=== PATIENT | female | born 1950 | race Caucasian/White ===

== ENCOUNTER → 2021-05-01 | Outpatient (CLI) | payer OTHER, SELFPAY ==
--- NOTE | 2021-05-01 | EMB_PTH ---
PATIENT: LUIZA CROSS LOC: [facility] U#:[id number] AGE/SX: 70/F ROOM: RE05/01/[address]: Dr. Naya Muniz MD : 1950 BED: DIS: 05/01/2021 SPEC #: [id number] RECD: 05/01/21 11:08 STATUS: OSWALDO FRANCHESCA #: [id number] NÉSTOR: 05/01/21 00:[address]: Naya Muniz DEPT: SURGICAL PATHOLOGY RECD BY: Adriano Herbert ENTERED: 05/01/21 11:22 SP TYPE: ENDOM BX/C ANDREE DR: No Primary Care Phys Tissues: A - Endometrium, NOS B - POLYP Procedures: Surgery Specimen Level IV HEADER OPERATION: Endometrial biopsy / polypectomy PRE-OP DIAGNOSIS: Abnormal uterine bleeding TISSUE SUBMITTED: A ? Endocervical, B - Polyp MICROSCOPIC DIAGNOSIS A. Endometrial biopsy: Scant strips of benign endometrial epithelium, consistent with atrophic endometrium and blood clots. Scant strips of benign endocervical epithelium. B. Polyp, polypectomy: Benign endometrial polyp with simple cystic hyperplasia without atypia. MENDEZ:iva 05/02/2021 MICROSCOPIC DESCRIPTION Slides are reviewed. GROSS DESCRIPTION A - Received in fixative is one container labeled with the patient's name and designated endometrial biopsy. The specimen consists of red-farris soft tissue measuring in aggregate 1.3 x 1 x <0.1 cm. The specimen is totally submitted in one cassette. B - Received in fixative is one container labeled with the patient's name and designated polyp. The specimen consists of a polypoid fragment of pink-farris soft tissue measuring 1.5 x 0.6 x 0.5 cm. The specimen is bisected and totally submitted in one cassette. / AM:iva 05/01/2021 TC:5 CPT: 31328 x2
[2021-05-01 08:42] VITALS: BMI 35.3
== END | disposition home or self-care (01) ==
PROVIDERS: Referring Provider Obstetrics & Gynecology; Visit Provider Obstetrics & Gynecology
DX: N93.9 Abnormal uterine and vaginal bleeding, unspecified (principal); N85.01 Benign endometrial hyperplasia
CPT/HCPCS: 88305

== ENCOUNTER → 2021-05-05 07:13 | Outpatient (CLI) | payer SELFPAY, OTHER ==
[2021-05-01 08:42] VITALS: BMI 35.3
--- NOTE | 2021-05-05 07:22 | US_ITS ---
STUDY: ULTRASOUND OF THE FEMALE PELVIS - COMPLETE REASON FOR EXAM: Female, 70 years old. Bleeding. History of bilateral oophorectomy. TECHNIQUE: Transabdominal and Transvaginal TECHNICAL QUALITY: Adequate. COMPARISON: None. FINDINGS: The uterus is anteverted and is in a midline position. The uterus measures 6.9 x 4.7 x 3.9 cm. Normal uterine cervix. The endometrium measures 24 mm in thickness, and is heterogeneous (striated). There is no demonstrated endometrial mass. There is no demonstrated myometrial mass. The patient is status post bilateral nephrectomy. There is no fluid in the cul-de-sac. US/Transvaginal Non- IMPRESSION: Heterogeneous and thickened endometrium, measuring up to 2.4 cm. Tissue sampling is recommended to exclude neoplasm. Electronically Signed: Danilo Sanchez MD at 9:11 EDT Tel , Service support ,
--- NOTE | 2021-05-05 07:22 | US_ITS ---
STUDY: ULTRASOUND OF THE FEMALE PELVIS - COMPLETE REASON FOR EXAM: Female, 70 years old. Bleeding. History of bilateral oophorectomy. TECHNIQUE: Transabdominal and Transvaginal TECHNICAL QUALITY: Adequate. COMPARISON: None. FINDINGS: The uterus is anteverted and is in a midline position. The uterus measures 6.9 x 4.7 x 3.9 cm. Normal uterine cervix. The endometrium measures 24 mm in thickness, and is heterogeneous (striated). There is no demonstrated endometrial mass. There is no demonstrated myometrial mass. The patient is status post bilateral nephrectomy. There is no fluid in the cul-de-sac. US/Pelvic (Non ) IMPRESSION: Heterogeneous and thickened endometrium, measuring up to 2.4 cm. Tissue sampling is recommended to exclude neoplasm. Electronically Signed: Danilo Sanchez MD at 9:11 EDT Tel , Service support ,
== END ==
PROVIDERS: Referring Provider Obstetrics & Gynecology; Visit Provider Obstetrics & Gynecology
DX: N95.0 Postmenopausal bleeding (principal)
CPT/HCPCS: 76830; 76856

== ENCOUNTER 2021-06-06 06:45 | Day surgery (SDC) | payer SELFPAY ==
[2021-05-05 08:20] VITALS: BMI 35.3
--- NOTE | 2021-06-02 12:27 | EKG12_ITS ---
Test Reason : PRE OP Blood Pressure : / mmHG Vent. Rate : 068 BPM Atrial Rate : 068 BPM P-R Int : 190 ms QRS Dur : 076 ms QT Int : 422 ms P-R-T Axes : 011 -23 014 degrees QTc Int : 448 ms Normal sinus rhythm Normal ECG Confirmed by RAGHAV MAYFIELD, CARRIE ([id number]), editor news RAMO OWEN ([id number]) on 06/06/2021 8:27:40 AM Referred By: Naya Muniz Confirmed By:JOSE ALFREDO AVILEZ MD
[2021-06-06] VITALS (7 sets, daily range): BP systolic 105–138; BP diastolic 55–81; PULSE 47–69; RESP 16; TEMP 36–36.6; O2SAT 92–97; BMI 32.1
--- NOTE | 2021-06-06 | EMB_PTH ---
PATIENT: LUIZA CROSS LOC: [facility] [place] U#:[id number] AGE/SX: 70/F ROOM: RE06/06/[address]: Dr. Naya Muniz MD : 1950 BED: DIS: 06/06/2021 SPEC #: [id number] RECD: 06/06/21 11:29 STATUS: OSWALDO FRANCHESCA #: [id number] NÉSTOR: 06/06/21 00:[address]: Naya Muniz DEPT: SURGICAL PATHOLOGY RECD BY: Rayo Acevedo ENTERED: 06/06/21 11:29 SP TYPE: ENDOM BX/C ANDREE DR: No Primary Care Phys Tissues: Endometrium, NOS Procedures: Surgery Specimen Level IV HEADER OPERATION: Hysteroscopy, D&C symphion, myomectomy PRE-OP DIAGNOSIS: Post menopausal bleeding TISSUE SUBMITTED: Endometrial curettings and fibroid MICROSCOPIC DIAGNOSIS Endometrium curettings and fibroid: Endometrium with simple hyperplasia without atypia. Fragments of hyalinized myometrium consistent with portions of leiomyoma. AM;am 06/07/21 MICROSCOPIC DESCRIPTION Slides are reviewed. GROSS DESCRIPTION Received in formalin is one container labeled with the patient name and designated endometrial curettings and fibroid. The specimen consists of multiple elongated and irregular and rubbery fragments of pink-farris tissue measuring in aggregate 14 x 8 x 0.3cm. The specimen is totally submitted in 10 cassettes. / AM;am 06/06/21 TC:5 CPT:67590
--- NOTE | 2021-06-06 07:15 | HP.PCM_ITS ---
History and Physical Date of Admission: 06/06/21 Intake Vital Signs 05/05/21 08:18 05/05/21 08:20 Height 5 ft 3 in Weight: 183 lb BMI 32.4 35.3 BP 112/74 Intake Visit Reasons: US at 0730 Chief Complaint: pre op [employer] Reading [employer] Required: No Is patient in pain?: No Allergies No Known Allergies Allergy (Verified 02/24/16 01:37) Medications amlodipine 10 mg PO DAILY #30 tablet 02/27/16 [Rx Confirmed 05/05/21] sertraline [Zoloft] 25 mg PO DAILY #30 tablet 02/27/16 [Rx Confirmed 05/05/21] Is last menstrual period known: No Post menopausal: No Patient : No : No PFSH Medical History Anxiety and depression Hypertension Surgical History H/O bilateral oophorectomy H/O section Family History Unknown Cancer Brother Diabetes Sister Diabetes Social History Smoking Status: Never smoker alcohol intake: never substance use type: does not use caffeine: No seatbelt use: always do you feel safe at home: No additional social history: Chance- Patient does not work HPI US at 0730 Details: LUIZA CROSS is a 70 year old who presents for fu of postmenopausal bleeding. Her endometrial biopsy was within normal limits and polyp showed simple hyperplasia without atypia. Lining of the uterus is significantly thickened on ultrasound. She has had some bleeding since Saturday and cramping Pregancy History 3 Elective abortions Hx Para 3 Spontaneous abortions Hx # Term Pregnancies Ectopic pregnancies Hx # Pregnancies Multiple births 1 # of living children 3 ROS Const Constitutional: Denies fatigue, fever(s), headache(s), increased appetite, poor appetite, weight gain or weight loss GI GI: Reports as per HPI; Denies abdominal pain, constipation, nausea or vomiting : Reports as per HPI; Denies difficulty voiding, dysuria, hematuria, nipple discharge, pelvic pain, urinary frequency, urinary incontinence, urinary hesitancy, urinary urgency, vaginal discharge, vaginal dryness, vaginal odor, vaginal pruritus or other Skin Skin/Breast: Denies nipple discharge Exam Const General: cooperative, healthy appearing, comfortable, no acute distress and well developed Orientation: alert HENMT Head: normal to inspection and normocephalic Ears: hearing grossly normal bilaterally and external ears normal Nose: external nose normal and nares normal Face and sinus: normal facial exam Neck Neck: normal visual inspection, no lymphadenopathy and trachea midline Thyroid: thyroid normal Resp Effort & Inspection: normal respiratory effort Musc Other: gross motor intact no deficits, full bilateral strength Skin General: no rashes or lesions noted Neuro Motor: muscle tone normal throughout Coding Level of Care Code Off vis,est,level 3 Diagnoses Postmenopausal bleeding N95.0 Endometrial polyp N84.0 Assessment and Plan Assessment and Plan (1) Postmenopausal bleeding: Status: Acute Comment: emb polyp and thickened lining Plan - Dr. Naya Muniz MD: After discussing the patient's diagnosis and treatment plan options, patient wishes to proceed with surgical management. I have discussed with the patient the risks, benefits, and alternatives of the procedure which include but are not limited to risks of anesthesia, bleeding, infection, possible damage to bowel, bladder, or surrounding vasculature which could lead to additional surgery to evaluate any complications. Patient agrees to procedure and wishes to proceed. ACOG/uptodate references given for additional information regarding procedure. (2) Endometrial polyp: Status: Acute Comment: d and c hysteroscopy polypectomy UPDATE- I have seen the patient and performed any clinically relevant updates to the history and physical exam. Naya Muniz MD
[2021-06-06] MEDS: Lactated Ringers 1,000 ML 100 ML IV (07:20)
--- NOTE | 2021-06-06 08:00 | PCM.OPRPT ---
Problems Associated Problem List Diagnoses (1) Postmenopausal bleeding: (2) Endometrial polyp: Report of Operation Date of Procedure: 06/06/21 Pre-Operative Diagnosis: see problem list Post-Operative Diagnosis: same Surgery/Procedure Performed:: D&C hysteroscopy myomectomy using symphion pulling unit floorhand: None Type of Anesthesia: Local MAC Special Medications: none Specimen's removed: EMC,fibroid Drains: none Estimated Blood Loss (mL): 50 Fluids Replaced: crystalloid Description of Procedure: Patient was prepped and draped in a normal sterile fashion under MAC anesthesia. A weighted speculum was placed in the vagina and the anterior lip of the cervix was grasped with a single-tooth tenaculum. A paracervical block was placed with 1% lidocaine. Cervix was progressively dilated to allow passage of a 5 mm hysteroscope. The lining was fully visualized and noted to have a large submucosal fibroid and thickened lining. Uterine sounded to 9 cm. Using the symphion device, the fibroid was progressively removed without complications. Direct visual curettage was performed using the device , and all specimens were sent to pathology. All instruments were removed from the vagina and excellent hemostasis was noted. Patient was awoken and taken to recovery in stable condition. Grafts/Implants Used: none Complications none Admit VTE Documentation VTE Present on Admission: No VTE Mechan Device Prophylaxis: SCD's Multi Select Codes Urinary/Genital Urinary/Genital CPT Codes: 79833 Hysteroscopic myomectomy
--- NOTE | 2021-06-06 08:00 | EX.PCM.DISCH ---
Discharge Instructions Procedure D&C Diet Discharge Diet: No restrictions Activity Discharge Activity: Return to Normal Activity, May Shower and May Take a Tub Bath (after 1 week) May resume sexual activity in: 1-2 weeks Weight Bearing Status: Weight bearing as tolerated Lifting Restrictions: none Dressing / Incision Call your doctor if you observe: Fever of 101 or Higher, Using more than 1 pad per hour, Shortness of breath and Uncontrolled pain Follow Up Care Please Follow Up With: Naya Muniz MD When: Call [phone] to schedule appointment. Test Results: Test results from this visit will be discussed in further detail at your follow-up appointment, if applicable. Discharge Plan Admission Attending Provider: Naya Muniz Primary Care Provider: Care Physician,Augustina Primary Discharge Orders/Prescriptions Prescriptions: No Action amlodipine 10 MG tablet 10 mg PO DAILY Qty: 30 RF: 5 sertraline [Zoloft] 25 MG tablet 25 mg PO DAILY Qty: 30 RF: 5 Other Ambulatory Orders: 12 Lead EKG (Routine) Timeframe: [id number] Location: None Selected Ordered By: Dr. Naya Muniz
[2021-06-06] MEDS: Cefazolin 2 GM in 0.9% Normal Saline 100 ML IV (08:33)
[2021-06-06] MEDS: Lidocaine 1% (20 ml mdv) 20 ML Vial (08:51)
== END 2021-06-06 11:25 | disposition home or self-care (01) ==
LOC: SDC 06:49 → AC 06:55
PROVIDERS: Referring Provider Obstetrics & Gynecology; Visit Provider Obstetrics & Gynecology
PROC: 0UB98ZZ Excision of Uterus, Via Natural or Artificial Opening Endoscopic (ICD-10-PCS; CPT 58558; principal; 2021-06-06 08:25)
DX: N95.0 Postmenopausal bleeding (principal); N85.01 Benign endometrial hyperplasia; D25.0 Submucous leiomyoma of uterus; I10 Essential (primary) hypertension; F32.9 Major depressive disorder, single episode, unspecified; F41.9 Anxiety disorder, unspecified; Z79.899 Other long term (current) drug therapy
CPT/HCPCS: 58561; 36415; 86850; 86900; 86901; 87635; 88305; 93005; C9803; J7120; U0005; J2405; U0003

== ENCOUNTER 2021-08-08 07:24 | Day surgery (SDC) | payer SELFPAY ==
[2021-08-02 12:26] LABS: Absolute Lymphocyte Count 2.25 X10^3/uL (0.83-4.51); Absolute Neutrophil Count 6.9 X10^3/uL (2.0-7.7); Basophil# 0.03 X10^3/uL; Basophil% 0.3 % (0-1); Eosinophil# 0.09 X10^3/uL; Eosinophils% 0.9 % (0-5); Hematocrit 43.1 % (37-47); Hemoglobin 14.7 g/dL (12.0-15.0); Lymphocyte # 2.25 X10^3/ul (0.83-4.51); Lymphocyte % 22.4 % (19-41); Mean Corp Hgb Conc 34.1 g/dL (32-36); Mean Corpuscular Hgb 31.1 pg (27.0-32.0); Mean Corpuscular Volume 91.1 fL (81-99); Mean Platelet Vol. 12.1 fl (6.2-12.0); Monocyte# 0.73 X10^3/uL; Monocyte% 7.3 % (0-10); NRBC Flagged by Analyzer 0 % (0-5); Neutrophil # 6.92 X10^3/uL (2.7-7.7); Neutrophil % 68.8 % (47-70); Platelet Count 237 K/mm3 (150-450); RBC Distribution Width SD 43.6 fl (35.1-43.9); Red Blood Count 4.73 M/mm3 (4.2-5.4); White Blood Count 10.1 K/mm3 (4.4-11.0)
[2021-08-02 12:33] LABS: ALB/GLOB Ratio 0.9 RATIO (0.9-2.4); AST(SGOT) 16 U/L (15-37); Alanine Aminotransfer ALT/SGPT 36 U/L (13-56); Albumin, Serum 3.7 g/dL (3.2-5.0); Alkaline Phosphatase 83 U/L (45-117); Anion Gap 6 (5-15); BUN 6 mg/dL (7-18); Calcium,Total 9.1 mg/dL (8.5-10.1); Chloride 111 mmol/L (98-107); EST Glomerular Filtration Rate 131 mL/min (>60); Est Glom Filt Rate - Afr Amer 158 mL/min (>60); Glucose 98 mg/dL (74-106); Magnesium 2.4 mg/dL (1.6-2.6); Potassium 3.5 mmol/L (3.5-5.1); Protein, Total 7.7 g/dL (6.4-8.2); Sodium Level 140 mmol/L (136-145)
[2021-08-08] VITALS (18 sets, daily range): BP systolic 111–154; BP diastolic 47–74; PULSE 70–90; RESP 14–18; TEMP 36.4–37.6; O2SAT 90–98; BMI 28.2
[2021-08-08] MEDS: Scopolamine 1mg/72hr Patch 1 PATCH TD (08:33)
[2021-08-08] MEDS: Enoxaparin 40 MG/0.4 ML Syringe SC (08:33)
[2021-08-08] MEDS: Lactated Ringers 1,000 ML 40 ML IV (08:33)
[2021-08-08] MEDS: Celecoxib 200 MG Capsule 400 MG PO (08:34)
[2021-08-08] MEDS: Phenazopyridine 95 MG Tablet 190 MG PO (08:34)
[2021-08-08] MEDS: Acetaminophen 500 MG Tablet 1000 MG PO ×2 (08:34→15:26)
[2021-08-08] MEDS: Gabapentin 600 MG Tablet PO (08:34)
[2021-08-08] MEDS: dexAMETHasone 10 MG/ML Vial 8 MG IV (08:35)
--- NOTE | 2021-08-08 09:30 | HYST_PTH ---
PATIENT: LUIZA CROSS LOC: [facility] [place] U#:[id number] AGE/SX: 70/F ROOM: RE08/08/[address]: Dr. Naya Muniz MD : 1950 BED: DIS: 08/08/2021 SPEC #: [id number] RECD: 08/08/21 12:10 STATUS: OSWALDO FRANCHESCA #: [id number] NÉSTOR: 08/08/21 09:[address]: Naya Muniz DEPT: SURGICAL PATHOLOGY RECD BY: Stephanie Reyes ENTERED: 08/08/21 13:29 SP TYPE: HYSTERECT OTHR DR: Dr. Jerome Puente DO Tissues: Uterus, NOS Procedures: Surgery Specimen Level V HEADER OPERATION: NATALIA LA PRE-OP DIAGNOSIS: Endometrial hyperplasia TISSUE SUBMITTED: Uterus and cervix MICROSCOPIC DIAGNOSIS Uterus, hysterectomy: Cervix ? nabothian cysts and minimal chronic inflammation. Endometrium ? simple cystic hyperplasia without atypia. Myometrium ? adenomyosis and leiomyoma. AM:iva 08/09/2021 MICROSCOPIC DESCRIPTION Slides are reviewed. GROSS DESCRIPTION Received in fixative is one container labeled with the patient's name and designated uterus and cervix. The specimen consists of a hysterectomy specimen consisting of uterus with cervix weighing 57 gm and measures 9 x 5 x 3 cm. The serosal surface is farris, glistening. The ectocervical mucosa is unremarkable. The external os is circular in contour. The endocervical canal measures up to 4 cm in length and the endocervical mucosa is farris, glistening and unremarkable. The triangular endometrial cavity measures 4 cm in length and up to 3 cm in width. The endometrium is farris, glistening without any mass lesion and measures 0.1 cm in thickness. Sections of the uterine wall reveal one nodular mass at the fundus measuring 1.5 cm in greatest dimension. Sections of this mass reveals farris whorled cut surfaces without areas of hemorrhage, necrosis or cystic degeneration. Uninvolved uterine wall measures up to 1 cm in thickness. Traffic Operations Manager sections are submitted in nine cassettes as follows: 1 - anterior cervix, 2??posterior cervix, 3-5 - anterior uterine wall, 6-8 - posterior uterine wall, entire endometrium is submitted, 9 ? nodular mass. / MENDEZ:iva 08/08/2021 TC:5 CPT: 00690
[2021-08-08 09:35] LABS: Bedside Glucose 139 mg/dL (70-110)
[2021-08-08] MEDS: Cefazolin 2 GM in 0.9% Normal Saline 100 ML IV (09:40)
--- NOTE | 2021-08-08 09:52 | HP.PCM_ITS ---
History and Physical Date of Admission: 08/08/21 Intake Visit Reasons: Discuss hysterectomy Chief Complaint: hyster cosnsult Direct Service Provider Required: No Is patient in pain?: No Allergies No Known Allergies Allergy (Verified 06/19/21 13:25) Medications amlodipine 10 mg PO DAILY #30 tablet 02/27/16 [Rx Confirmed 08/02/21] sertraline [Zoloft] 25 mg PO DAILY #30 tablet 02/27/16 [Rx Confirmed 08/02/21] Is last menstrual period known: No Post menopausal: Yes Patient : No : No PFSH Medical History Anxiety and depression Bladder disease Heartburn History of edema Hypertension Non-smoker Restless legs Wears dentures Wears glasses Surgical History H/O bilateral oophorectomy H/O section Status post hysteroscopic myomectomy (~06/06/21) Family History Unknown Cancer Brother Diabetes Sister Diabetes Social History Smoking Status: Never smoker alcohol intake: never substance use type: does not use caffeine: No seatbelt use: always do you feel safe at home: No additional social history: Chance- Patient does not work HPI Discuss hysterectomy Details: LUIZA CROSS is a 70 year old who presents for discussion of hysterectomy. she has persistent heavy postmenopausal bleeding despite increasing progesterone, and she is having cramping other side effects likw with mood and sleeping, decreased appetite. she denies any CP SOB. Female Reproductive History Menopausal Symptoms: No night sweats Pregancy History 3 Elective abortions Hx Para 3 Spontaneous abortions Hx # Term Pregnancies Ectopic pregnancies Hx # Pregnancies Multiple births 1 # of living children 3 ROS Const Constitutional: Denies fatigue, night sweats, weight gain or weight loss ENT ENT: Reports system reviewed and no additional complaints, except as documented Cardio Card: Denies chest pain Resp Resp: Denies cough or dyspnea GI GI: Reports as per HPI; Denies abdominal pain, constipation, nausea or vomiting : Denies nipple discharge, urinary frequency, urinary incontinence, urinary hesitancy, urinary urgency, vaginal discharge, vaginal dryness, vaginal odor or vaginal pruritus Musc Musc: Denies arthralgias, back pain or muscle weakness Skin Skin/Breast: Denies alopecia, change in hair, dry skin, breast mass, breast pain, breast skin changes or nipple discharge Neuro Neuro: Reports system reviewed and no additional complaints, except as documented Psych Psych: Reports system reviewed and no additional complaints, except as documented Endo Endo: Denies cold intolerance, excessive sweating, heat intolerance or polydipsia Trung/Lymph Hematologic/Lymphatic: Denies easy bleeding, Denies easy bruising and Denies lymphadenopathy Exam Const General: cooperative, healthy appearing, comfortable, no acute distress and well developed Orientation: alert [facility] Head: normal to inspection and normocephalic Ears: hearing grossly normal bilaterally and external ears normal Nose: external nose normal and nares normal Face and sinus: normal facial exam Neck Neck: normal visual inspection and no lymphadenopathy Thyroid: thyroid normal Chest Chest palpation & inspection: normal inspection of the chest Resp Effort & Inspection: normal respiratory effort Auscultation: clear to auscultation bilaterally Cardio Rate: regular rate Rhythm: regular rhythm Heart Sounds: S1 normal and S2 normal GI Inspection: normal to inspection and non-distended Palpation: soft and no hepatosplenomegaly Musc Other: gross motor intact no deficits, full bilateral strength Skin General: no rashes or lesions noted Neuro General: patient alert, patient awake, moves all extremities and no focal motor deficits Motor: muscle tone normal throughout Extrem General: normal to inspection and no pedal edema Psych Appearance: grossly normal Mental Status: mental status grossly normal Affect: normal affect Speech and Movement: speech and movement normal Coding Level of Care Code Off vis,est,level 5 Diagnoses Simple endometrial hyperplasia without atypia N85.01 Postmenopausal bleeding N95.0 Assessment and Plan Assessment and Plan (1) Simple endometrial hyperplasia without atypia: Status: Acute Comment: Megace 40mg qd X 6 mo with EMB in 6 mo. didnt tolerate, plan [facility] Plan - Dr. Naya Muniz MD: After discussing the patient's diagnosis and treatment plan options, patient wishes to proceed with surgical management. I have discussed with the patient the risks, benefits, and alternatives of the procedure which include but are not limited to risks of anesthesia, bleeding, infection, possible damage to bowel, bladder, or surrounding vasculature which could lead to additional surgery to evaluate any complications. Patient agrees to procedure and wishes to proceed. ACOG/uptodate references given for additional information regarding procedure. (2) Postmenopausal bleeding: Status: Acute Comment: plan LAVH. s/p myomectomy; simple hyperplasia wo atypia. UPDATE- I have seen the patient and performed any clinically relevant updates to the history and physical exam. Naya Muniz MD
--- NOTE | 2021-08-08 09:54 | PCM.OPRPT ---
Problems Associated Problem List Diagnoses (1) Simple endometrial hyperplasia without atypia: (2) Postmenopausal bleeding: Report of Operation Date of Procedure: 08/08/21 Pre-Operative Diagnosis: PMB Post-Operative Diagnosis: same Surgery/Procedure Performed:: NATALIA Description of Surgical Findings:: scar tissue vesicouterine chairman president and chief executive officer: Kayleigh Jeffery Type of Anesthesia: General Special Medications: nenita Specimen's removed: uterus Drains: ace Estimated Blood Loss (mL): 100 Fluids Replaced: crystalloid Description of Procedure: Patient received preoperative antibiotics and SCDs were on preoperatively. Patient was taken back to the operating room and placed in the dorsal lithotomy position. General anesthesia was induced and patient was prepped and draped in normal sterile fashion. Uterine manipulator was placed inside the uterus and Ace catheter placed in the bladder. The umbilicus was grasped with towel clamps and an intraumbilical incision was made after injecting with quarter percent Marcaine and a Veress needle entered into the abdomen confirmed to be intra-abdominal with a low opening pressure. Abdomen was insufflated with CO2 gas and the Veress needle removed and the 5 mm trocar was placed under direct visualization without complication. Right and left lower quadrants were transilluminated and injected with quarter percent Marcaine and 5 mm ports placed under direct visualization. Pelvis was well visualized see operative findings for additional information. Bilateral fallopian tubes were identified and transected with the LigaSure device across the mesosalpinx to the level of the utero-ovarian ligament which was also transected with the LigaSure device. The broad ligament was opened up by transecting the round ligament bilaterally and skeletonizing the uterine vessels bilaterally and creating a bladder flap using the LigaSure device. The uterine arteries were transected bilaterally with good visualization of the bladder and the ureters were seen to be inferior lateral to the operative area. Attention was then paid to the vaginal portion of the procedure and the cervix was grasped with Tiffany clamps and circumferentially injected with dilute vasopressin. A circumferential incision was made and the vaginal mucosa was mobilized off posteriorly and the cul-de-sac entered into sharply and a longneck speculum placed. The anterior cul-de-sac was then identified and entered into sharply. The uterosacral ligaments were clamped cut and suture ligated with 0 Monocryl bilaterally followed by the cardinal ligaments which were clamped cut and suture ligated bilaterally with 0 Monocryl. The uterus serially descended and was removed without difficulty. Pelvic sidewall pedicles were checked and noted to have excellent hemostasis. The vaginal mucosa was reapproximated incorporating the posterior peritoneum. This was reapproximated using 0 Vicryl [id number] sutures. Excellent hemostasis was noted. The pelvis and cul-de-sac were well visualized and no significant active bleeding noted but some raw areas were seen on the peritoneum and therefore Nenita was applied. Pressure was taken down and the areas visualized and noted of excellent hemostasis. All ports were removed under direct visualization without complication and the abdomen was desufflated of air. The instruments were removed from the abdomen and the vaginal sweep was negative. Port sites on the abdomen were closed with 4-0 Monocryl interrupted sutures and Steri's and windows were applied. She was awoken and taken recovery in stable condition. Grafts/Implants Used: none Complications none Admit VTE Documentation VTE Present on Admission: No VTE Mechan Device Prophylaxis: SCD's VTE Pharm Prophylaxis ordered?: Yes Procedures Urinary/Genital 52xxx-59xxx: 58631 LAVH <250gr Uterus
[2021-08-08] MEDS: Bupivacaine 0.25% 30 ML Vial (10:49)
[2021-08-08] MEDS: Vasopressin 20 UNITS/ML Vial (10:50)
--- NOTE | 2021-08-08 11:02 | PCM.DC ---
Discharge Instructions Diet Discharge Diet: No restrictions Activity May resume sexual activity in: 6 weeks Weight Bearing Status: Full weight bearing Dressing / Incision Call your doctor if your incision/area has: Continuous Slow Oozing, Sudden Increased Bleeding, Increased Pain/ Swelling, Increased Redness and Foul Smelling Discharge Call your doctor if you observe: Fever of 101 or Higher, Using more than 1 pad per hour, Shortness of breath, Chest pain and Uncontrolled pain Suture Line Care: Avoid Pulling/Pushing and Avoid Pinching/Bending Remove Dressing in: 1 week (if present) Cleanse incision/area with: Soap & Water and Keep Dressing Clean & Dry Follow Up Care Please Follow Up With: Naya Muniz MD When: Call to make an appointment with your doctor for a postop visit in 2 and 6 weeks. Test Results: Test results from this visit will be discussed in further detail at your follow-up appointment, if applicable. Discharge Plan Admission Primary Reason for Your Visit: hysterectomy Attending Provider: Naya Muniz Primary Care Provider: Jerome Puente Discharge Orders/Prescriptions Prescriptions: New oxycodone-acetaminophen [Percocet] 5-325 mg tablet 1 tab PO Q6H PRN (Reason: pain) 7 Days Qty: 20 RF: 0 naproxen [naproxen] 500 MG tablet 500 mg PO BID PRN PRN (Reason: Pain) Qty: 30 RF: 1 Continued amlodipine 10 MG tablet 10 mg PO DAILY Qty: 30 RF: 5 sertraline [Zoloft] 25 MG tablet 25 mg PO DAILY Qty: 30 RF: 5 zolpidem 5 mg Tablet 5 mg PO QHS PRN (Reason: Sleep) RF: 0 Referrals / Follow Up: Jerome Puente DO [Primary Care Provider] - Disposition Disposition (needs filled in before D/C Order can be placed): Home, Self Care
[2021-08-08] MEDS: Lactated Ringers 1,000 ML 70 ML IV ×2 (12:14→18:07)
[2021-08-08] MEDS: Ketorolac 30 MG/ML Syringe IV (15:26)
[2021-08-08 15:43] LABS: Hematocrit 41.6 % (37-47); Hemoglobin 13.6 g/dL (12.0-15.0); Mean Corp Hgb Conc 32.7 g/dL (32-36); Mean Corpuscular Hgb 30.6 pg (27.0-32.0); Mean Corpuscular Volume 93.7 fL (81-99); Mean Platelet Vol. 11.9 fl (6.2-12.0); Platelet Count 276 K/mm3 (150-450); RBC Distribution Width CV 13.3 % (11.6-14.6); RBC Distribution Width SD 45.2 fl (35.1-43.9); Red Blood Count 4.44 M/mm3 (4.2-5.4); White Blood Count 15.7 K/mm3 (4.4-11.0)
[2021-08-08] MEDS: Lactated Ringers 1,000 ML 999 ML IV (16:00)
== END 2021-08-08 20:30 | disposition home or self-care (01) ==
LOC: SDC 07:29 → AC 07:30
PROVIDERS: PCP Family Medicine; Referring Provider Obstetrics & Gynecology; Visit Provider Obstetrics & Gynecology
PROC: 0UT9FZZ Resection of Uterus, Via Natural or Artificial Opening With Percutaneous Endoscopic Assistance (ICD-10-PCS; CPT 58550; principal; 2021-08-08 09:05)
DX: N85.01 Benign endometrial hyperplasia (principal); N88.8 Other specified noninflammatory disorders of cervix uteri; N80.0 Endometriosis of uterus; N95.0 Postmenopausal bleeding; D25.9 Leiomyoma of uterus, unspecified; I10 Essential (primary) hypertension; F32.A Depression, unspecified; F41.9 Anxiety disorder, unspecified; Z90.722 Acquired absence of ovaries, bilateral; Z79.899 Other long term (current) drug therapy
CPT/HCPCS: 00944; 58550; 36415; 80053; 82962; 83735; 85025; 85027; 86850; 86900; 86901; 87426; 88307; J7120; J2405